=== PATIENT | male | born 1980 | race Caucasian/White ===

== ENCOUNTER 2024-04-29 09:46 | Outpatient (OUT) | payer OTHER, SELFPAY ==
[2024-04-29 10:52] LABS: Basophils Percent Auto 0.5 % (0.2-2.0); Eosinophils Absolute Auto 0.1 10^3/uL (0.0-0.7); Eosinophils Percent Auto 1.1 % (0.9-7.0); Hematocrit 44.1 % (42.0-54.0); Hemoglobin 15.1 g/dL (14.0-18.0); Immature Granulocytes Abs Auto 0.02 10^3/uL (0.00-0.03); Immature Granulocytes Pct Auto 0.3 % (0.0-0.5); Lymphocytes Absolute Auto 2.3 10^3/uL (1.2-3.8); Lymphocytes Percent Auto 36.6 % (20.5-60.0); Mean Corpuscular HGB Conc 34.2 g/dL (29.9-35.2); Mean Corpuscular Hemoglobin 31.7 pg (25.9-34.0); Mean Corpuscular Volume 92.6 fL (80.0-94.0); Mean Platelet Volume 10.4 fL (9.5-13.5); Monocytes Absolute Auto 0.6 10^3/uL (0.3-0.8); Monocytes Percent Auto 8.6 % (1.7-12.0); Neutrophils Absolute Auto 3.4 10^3/uL (1.4-6.5); Neutrophils Percent Auto 52.9 % (43.0-75.0); Platelet Count 237 10^3/uL (150-450); Red Blood Count 4.76 10^6/uL (4.70-6.10); Red Cell Distribution Width 12.6 % (11.0-15.0); White Blood Count 6.4 10^3/uL (4.0-11.0)
[2024-04-29 11:03] LABS: Estimated Average Glucose 111 mg/dL; Glycohemoglobin A1C 5.5 % (4.5-6.2)
[2024-04-29 11:43] LABS: Alanine Aminotransferase 80 U/L (16-63); Albumin Level 3.5 g/dL (3.4-5.0); Alkaline Phosphatase 77 U/L (46-116); Anion Gap 12.3; Aspartate Amino Transferase 27 U/L (15-37); BUN Creatinine Ratio 11.5; Bilirubin Total 0.5 mg/dL (0.2-1.0); Calcium 8.7 mg/dL (8.5-10.1); Carbon Dioxide 27.1 mmol/L (21.0-32.0); Chloride 105 mmol/L (98-107); Chol HDL Ratio 7.1; Cholesterol 226 mg/dL (<=200); Estimated GFR (African America >60 (>=60); Estimated GFR (Non-African Ame >60 (>=60); Free T3 2.65 pg/mL (2.18-3.98); Globulin 3.5 g/dL; Glucose 98 mg/dL (74-106); HDL Cholesterol 32 mg/dL (40-60); Potassium 4.4 mmol/L (3.5-5.1); Sodium 140 mmol/L (136-145); Thyroid Stimulating Hormone 1.174 uIU/mL (0.358-3.740); Triglycerides 192 mg/dL (<=150); VLDL CHOLESTEROL 38.4 mg/dL
== END 2024-04-29 09:47 | disposition home or self-care (01) ==
LOC: LAB 09:50
PROVIDERS: PCP Family Medicine; Visit Provider Family Medicine
DX: R73.09 Other abnormal glucose (principal); I10 Essential (primary) hypertension
CPT/HCPCS: 36415; 80053; 80061; 83036; 84436; 84443; 84481; 85025

== ENCOUNTER 2024-06-02 09:18 | Outpatient (OUT) | payer OTHER, SELFPAY ==
--- NOTE | 2024-06-02 | PCN_ITS ---
CARDIAC STRESS TEST Requesting Physician: Procedure Date: 06/02/2024 INDICATION: Hypertension. This was a treadmill exercise stress test performed at the [facility] on 06/02/2024. Informed consent was signed. The patient exercised on the treadmill according to the Adriano protocol. Total exercise time was 9 minutes. The patient reached stage 3 of the Adriano protocol and achieved 10.1 METS. The test was stopped due to achieving target heart rate. No chest pain was reported by the patient. There was shortness of breath that resolved within 2 minutes of completing the exercise. Resting heart rate was 82 BPM and resting blood pressure was 122/76. Peak heart rate was 155 BPM and peak blood pressure was 166/92. Peak heart rate represented 88% of maximal predicted heart rate. Resting ECG showed normal sinus rhythm with incomplete right bundle branch block and non-specific ST segment changes in the inferior leads. ECG during peak exercise showed [address] segment depression in leads 3 and AVF. Final ECG was comparable to baseline. There were no arrhythmias noted. SUMMARY OF THE FINDINGS: 1. Equivocal stress test due to presence of abnormal ST segment changes at baseline. Those changes slightly worsened during peak exercise. 2. 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 3. Depending on the clinical picture, repeat stress testing with imaging would be recommended given presence of ST segment abnormalities at baseline. EDWARD
--- NOTE | 2024-06-02 10:33 | PC.NURSE ---
Nursing Note Cardiac Stress Test Reviewed: Medication, allergies and patient history reviewed. Stress Test: [ x] Patient tolerated stress test well. [ ] Patient unable to tolerate walking on treadmill. Switched to Lexiscan stress test. [ x] No chest pain noted per patient [ ] Chest pain that resolved prior to leaving stress lab. [ ] No dyspnea noted. [x ] Dyspnea that resolved prior to leaving stress lab. [ x] Patient left stress lab asymptomatic and hemodynamically stable. [ ] Patient taken to the Emergency Room due to non-resolving symptoms following stress test. [x ] Patient achieved target heart rate. [ ] Patient unable to achieve target heart rate. [ ] Aminophylline administered as reversal agent to Lexiscan (Regadenoson). [ ] Nitro administered. Nursing Comments: Pt had regular stress test done. Pt tolerated well. NO issues. Pt had dyspnea that resolved within 2 minutes of rest. No chest pain noted.
== END 2024-06-02 09:19 | disposition home or self-care (01) ==
LOC: CARD 09:19
PROVIDERS: PCP Family Medicine; Visit Provider Nurse Practitioner Family
DX: E78.00 Pure hypercholesterolemia, unspecified (principal); I10 Essential (primary) hypertension
CPT/HCPCS: 93017

== ENCOUNTER 2025-05-25 10:27 | Outpatient (OUT) | payer OTHER, SELFPAY ==
--- OUTSIDE RECORDS SUMMARY | 2025-05-25 10:35 | XMS_ITS | Encounter Summary ---
Author Organization [facility] Address [address] [place] [address] Phone Care Team Providers Care Timber Packer Name Role Phone Lance Moreno MD Primary Care Provider [phone] Encounter Details Date Type Department Care Team (Late st Contact Info) Description 07/24/2022 Orders Only [facility] [address] [place] [address] Conversion, Onbase Social History Tobacco Use Types Packs/Day Years Used Date Smoking Tobacco: Never Assessed Sex and Gender Information Value Date Recorded Sex Assigned at Not on file Legal Sex Male 5:48 AM EST Gender Identity Not on file Sexual Orientation Not on file documented as of this encounter Plan of Treatment Scheduled Orders Name Type Priority Associated Diagnoses Orde r Schedule OUTSIDE LAB SCAN Lab Ordered: 07/24/2022 documented as of this encounter Visit Diagnoses Not on filedocumented in this encounter Care Teams Timber Packer Relationship Specialty Start Date End Date Lance Moreno MD [address] [id number] PCP - General 08/03/22 documented as of this encounter
[2025-05-25 11:06] LABS: Hematocrit 45.5 % (42.0-54.0); Hemoglobin 15.8 g/dL (14.0-18.0); Immature Granulocytes Abs Auto 0.04 10^3/uL (0.00-0.03); Immature Granulocytes Pct Auto 0.6 % (0.0-0.5); Lymphocytes Absolute Auto 1.8 10^3/uL (1.2-3.8); Mean Corpuscular HGB Conc 34.7 g/dL (29.9-35.2); Mean Corpuscular Hemoglobin 32.3 pg (25.9-34.0); Mean Corpuscular Volume 93.0 fL (80.0-94.0); Platelet Count 198 10^3/uL (150-450); Red Blood Count 4.89 10^6/uL (4.70-6.10); White Blood Count 6.5 10^3/uL (4.0-11.0)
[2025-05-25 12:02] LABS: Alanine Aminotransferase 48 U/L (16-63); Albumin Globulin Ratio 1.2; Albumin Level 3.8 g/dL (3.4-5.0); Alkaline Phosphatase 68 U/L (46-116); Anion Gap 8.4; Aspartate Amino Transferase 22 U/L (15-37); Blood Urea Nitrogen 13.0 mg/dL (7.0-18.0); Calcium 9.1 mg/dL (8.5-10.1); Carbon Dioxide 31.8 mmol/L (21.0-32.0); Chloride 104 mmol/L (98-107); Cholesterol 126 mg/dL (<=200); Estimated GFR (African America >60 (>=60 mL/min/1.73m^2); Estimated GFR (Non-African Ame >60 (>=60 mL/min/1.73m^2); Free T3 2.72 pg/mL (2.18-3.98); Globulin 3.1 g/dL; Glucose 92 mg/dL (74-106); HDL Cholesterol 39 mg/dL (40-60); Potassium 4.2 mmol/L (3.5-5.1); Sodium 140 mmol/L (136-145); Thyroid Stimulating Hormone 0.713 uIU/mL (0.358-3.740); Total Protein 6.9 g/dL (6.4-8.2); Triglycerides 94 mg/dL (<=150); VLDL CHOLESTEROL 18.8 mg/dL
== END 2025-05-25 10:28 | disposition home or self-care (01) ==
LOC: LAB 10:32
PROVIDERS: PCP Nurse Practitioner Family; Visit Provider Nurse Practitioner Family
DX: Z00.00 Encounter for general adult medical examination without abnormal findings (principal); Z12.5 Encounter for screening for malignant neoplasm of prostate
CPT/HCPCS: 36415; 80053; 80061; 83036; 84436; 84443; 84481; 85025; G0103

== ENCOUNTER 2025-08-18 16:33 | Outpatient (OUT) | payer OTHER, SELFPAY ==
--- NOTE | 2025-08-18 | XR_ITS ---
[facility] [place] [id number] Patient Name: MARCO BREWSTER MRN: [id number] date: 1980 Sex: M Assigned Patient Location: RAD Current Patient Location: [facility] Accession/Order Number: [id number] Exam Date: 08/18/2025 16:52 Report Date: 08/18/2025 20:37 At the request of: BRENTON BONDS Procedure: XR foot LT min 3V LEFT FOOT - 3 views CLINICAL HISTORY: Left Foot Pain, M79.672 COMPARISON: None FINDINGS: No fracture or dislocation. Hwen-wr-htbabcpt posterior and plantar calcaneal spurring. Minimal degenerative changes involving the first MTP joint. XR/XR foot LT min 3V IMPRESSION: NO ACUTE OSSEOUS FINDINGS. Impression dictated by: Julius Pierre M.D. 08/18/2025 8:37 PM Dictation Location: [place] [id number] Electronically authenticated by: [id number] Date: 08/18/2025 20:37
--- OUTSIDE RECORDS SUMMARY | 2025-08-18 16:44 | XMS_ITS | CCD ---
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 Normal [facility] PROF 14(COMP METB)on 022 Albumin [Mass/Vol] 3.7 g/dL Normal 3.4-5.0 [facility] Comment on above: Performed By: #### T SH, CMP, LIPID #### [facility] [address] [address] [address] Natasha Trinidad Albumin/Globulin [Mass ratio] 1.2 {ratio} Normal [facility] Comment on above: Performed By: #### T SH, CMP, LIPID #### [facility] [address] [address] [address] Natasha Trinidad ALP [Catalytic activity/Vol] 65 U/L Normal 46-116 [facility] Comment on above: Performed By: #### T SH, CMP, LIPID #### [facility] [address] [address] [address] Natasha Trinidad ALT [Catalytic activity/Vol] 106 U/L Critically high 16-63 [facility] Comment on above: Performed By: #### T SH, CMP, LIPID #### [facility] [address] [address] [address] Natasha Trinidad Anion gap [Moles/Vol] 10.5 mmol/L Normal [facility] Comment on above: Performed By: #### T SH, CMP, LIPID #### [facility] [address] [address] [address] Natasha Trinidad AST [Catalytic activity/Vol] 24 U/L Normal 15-37 [facility] Comment on above: Performed By: #### T SH, CMP, LIPID #### [facility] [address] [place] [address] Dr. Natasha Trinidad Bilirubin [Mass/Vol] 0.6 mg/dL Normal 0.2-1.0 [facility] Comment on above: Performed By: #### T SH, CMP, LIPID #### [facility] [address] [place] [address] Dr. Natasha Trinidad Calcium [Mass/Vol] 9.0 mg/dL Normal 8.5-10.1 [facility] Comment on above: Performed By: #### T SH, CMP, LIPID #### [facility] [address] [place] [address] Dr. Natasha Trinidad Chloride [Moles/Vol] 105 mmol/L Normal 98-107 [facility] Comment on above: Performed By: #### T SH, CMP, LIPID #### [facility] [address] [place] [address] Dr. Natasha Trinidad CO2 [Moles/Vol] 30.0 mmol/L Normal 21.0-32.0 [facility] Comment on above: Performed By: #### T SH, CMP, LIPID #### [facility] [address] [place] [address] Dr. Natasha Trinidad Creatinine [Mass/Vol] 1.15 mg/dL Normal 0.70-1.30 [facility] Comment on above: Performed By: #### T SH, CMP, LIPID #### [facility] [address] [place] [address] Dr. Natasha Trinidad EGFR-AF BAHAMIAN >60 Normal >=60 [facility] Comment on above: Performed By: #### T SH, CMP, LIPID #### [facility] [address] [address] [address] Natasha Trinidad EGFR-NON AF BAHAMIAN >60 Normal >=60 [facility] Comment on above: Performed By: #### T SH, CMP, LIPID #### [facility] [address] [address] [address] Natasha Trinidad Globulin (S) [Mass/Vol] 3.2 g/dL Normal [facility] Comment on above: Performed By: #### T SH, CMP, LIPID #### [facility] [address] [address] [address] Natasha Trinidad Glucose [Mass/Vol] 101 mg/dL Normal 74-106 [facility] Comment on above: Performed By: #### T SH, CMP, LIPID #### [facility] [address] [address] [address] Natasha Trinidad Potassium [Moles/Vol] 4.5 mmol/L Normal 3.5-5.1 [facility] Comment on above: Performed By: #### T SH, CMP, LIPID #### [facility] [address] [address] [address] Natasha Trinidad Protein [Mass/Vol] 6.9 g/dL Normal 6.4-8.2 [facility] Comment on above: Performed By: #### T SH, CMP, LIPID #### [facility] [address] [address] [address] Natasha Trinidad Sodium [Moles/Vol] 141 mmol/L Normal 136-145 [facility] Comment on above: Performed By: #### T SH, CMP, LIPID #### [facility] [address] [address] [address] Natasha Trinidad Urea nitrogen [Mass/Vol] 13.0 mg/dL Normal 7.0-18.0 [facility] Comment on above: Performed By: #### T SH, CMP, LIPID #### [facility] [address] [address] [address] Natasha Trinidad Urea nitrogen/Creatinine [Mass ratio] 11.3 mg/mg Normal [facility] Comment on above: Performed By: #### T SH, CMP, LIPID #### [facility] [address] [address] [address] Natasha Trinidad TSHon 07-24-2022 TSH 0.997 uIU/mL Normal 0.358-3.740 [facility] Comment on above: Performed By: #### T SH, CMP, LIPID #### [facility] [address] [address] [address] Natasha Trinidad XR LSPINE MIN 4 VIEWSon 06-13 XR LSPINE MIN 4 VIEWS EXAMINATION: XR LSPINE MIN 4 VIEWS HISTORY: Low back pain COMPARISON: No relevant comparison available. FINDINGS: BONES: Normal alignment with no spondylolisthesis. 20% anterior superior wedge compression fracture of L1, endplate sclerosis suggests a subacute or chronic fracture. Degenerative spondylosis and facet osteoarthropathy. Mild right DISC SPACES: Normal. No significant disc height narrowing, subluxation, or endplate abnormality. PARASPINOUS: Negative. No paraspinous abnormality is seen. OTHER: Negative. IMPRESSION: 20% anterior superior wedge compression fracture of L1, subacute/chronic Electronically authenticated by: EJ GARZA Date: 2022-07-04 15:23 Normal [facility] Vital Signs Date Time Vital Sign Value Performing Clinician Faci lity 01-12-2025 12:18-0500 Body height 181.61 cm [facility] 01-12-2025 12:18-0500 Body mass index (BMI) [Ratio] 34.1 kg/m2 [facility] 01-12-2025 12:18-0500 Body temperature 98.9 [degF] [facility] 01-12-2025 12:18-0500 Body weight 112.49 kg [facility] 01-12-2025 12:18-0500 Diastolic blood pressure 82 mm[Hg] [facility] 01-12-2025 12:18-0500 Heart rate 87 /min [facility] 01-12-2025 12:18-0500 Respiratory rate 16 /min [facility] 01-12-2025 12:18-0500 SaO2% (BldA) [Mass fraction] 97 % [facility] 01-12-2025 12:18-0500 Systolic blood pressure 127 mm[Hg] [facility] 08-22-2024 09:30-0400 Diastolic blood pressure 61 mm[Hg] [employer] Diandraromana Statonmer Work Phone: [facility] 08-22-2024 09:30-0400 Heart rate 63 /min [employer] Diandra Vamshi Work Phone: [facility] 08-22-2024 09:30-0400 Respiratory rate 16 /min [employer] Diandraromana Statonmer Work Phone: [facility] 08-22-2024 09:30-0400 SaO2% (BldA) [Mass fraction] 98 % [employer] Diandra Statonmer Work Phone: [facility] 08-22-2024 09:30-0400 Systolic blood pressure 105 mm[Hg] [employer]ACH[employer]C Diandraromana Statonmer Work Phone: [facility] 08-22-2024 08:14-0400 Body height 180.34 cm [employer] Diandra Bonds Work Phone: [facility] 08-22-2024 08:14-0400 Body weight 108.86 kg [employer] Diandra Statonmer Work Phone: [facility] 08-03-2022 11:59-0400 Body height 182.88 cm Lance Tong Leviy Work Phone: CD-Tpobvphdtxny-No rth [facility] [place] Work Phone: 08-03-2022 11:59-0400 Body mass index (BMI) [Ratio] 33.36 kg/m2 Lance M Hoy Work Phone: XN-Qvkxodgozcvy-Fj rth [facility] [place] Work Phone: 08-03-2022 11:59-0400 Body surface area Derived from formula 2.33 m2 Lance Tong Hoy Work Phone: SV-Chfztblydlfq-Sx rth [facility] [place] Work Phone: 08-03-2022 11:59-0400 Body weight 111.59 kg Lance M Hoy Work Phone: RB-Lvsmifqgqfma-Me rth [facility] [place] Work Phone: 08-03-2022 11:59-0400 Diastolic blood pressure 97 mm[Hg] Lance M Hoy Work Phone: LV-Vylzpcpehgil-Hn rth [facility] [place] Work Phone: 08-03-2022 11:59-0400 Heart rate 84 /min Lance M Hoy Work Phone: VZ-Lrfyvbfxgmhc-Ji rth [facility] [place] Work Phone: 08-03-2022 11:59-0400 Respiratory rate 20 /min Lance M Hoy Work Phone: JR-Qlmjdwhhocbx-Ie rth [facility] [place] Work Phone: 08-03-2022 11:59-0400 Systolic blood pressure 162 mm[Hg] Lance M Hoy Work Phone: HC-Jkknqnizhubk-Xh rth [facility] [place] Work Phone: Encounters Encounter Date Encounter Type Care Provider Facility Start: 05-25-2025 End: 05-25-2025 ambulatory Aysha Monahan [facility] Start: 04-27-2025 End: 04-27-2025 Emergency department patient visit Diandra Bonds Facility:[facility] Start: 03-17-2025 End: 03-17-2025 ambulatory [facility] Start: 02-02-2025 End: 02-03-2025 ambulatory [facility] Start: 01-12-2025 End: 01-12-2025 ambulatory [facility] Work Phone: Start: 01-12-2025 End: 01-12-2025 Patient encounter procedure Count Includes [facility] Work Phone: Start: 08-22-2024 End: 08-22-2024 Patient encounter procedure [employer]ET CO[employer] Diandra Bonds Work Phone: [facility] [place] Work Phone: Start: 08-22-2024 End: 08-22-2024 ambulatory [employer] Diandra Mustafae Vamshi Work Phone: [facility] Work Phone: Start: 08-03-[address] Ian Martin [facility] Facility:[id number] Start: 08-03-2022 Current tobacco non- user cad cap copd pv dm Lance Moreno Work Phone: FW-Ukudfjbfynwe-Sseot [facility] [place] Work Phone: Start: 07-29-2022 Encounter for genera l adult medical examination without abnormal findings DIANDRA BONDS [facility] Start: 07-24-2022 End: 07-25-2022 ambulatory DIANDRA BONDS Facility:[facility] Start: 07-24-2022 End: 07-25-2022 Encounter for general adult medical examination without abnormal findings DIANDRA BONDS Facility:[facility] Start: 07-14-2022 ambulatory DIANDRA BONDS Facility: [facility] Start: 07-03-2022 End: 07-04-2022 ambulatory DIANDRA BONDS Facility:[facility] Procedures Date Procedure Procedure Detail Performing Clinician Start: 08-22-2024 CT angiography of co ronary arteries [employer] Diandra Bonds Work Phone: Scrotum and testicle operation Lance Alycia Josh Work Phone: Tonsillectomy Lance Alycia Josh Work Phone: Payers Date Payer Category Payer Private Health Insurance [id number] 1980 Unknown [id number] [id number] 1980 Unknown [id number] [id number] 1979 Unknown [id number] [id number] 1979 Unknown [id number] [id number] 1959 Private Health Insurance [id number] 1960 Self-pay Unknown [employer] Unknown [id number] 2.16.8 [id number] Unknown [id number] [id number] [id number] Social History Date Type Detail Facility Former [facility] [place] Work Phone: Start: 1980 Sex Assigned At Male F [facility] Start: 01-12-2025 Tobacco smoking stat [facility] Ex-smoker (finding) [facility] Start: 01-12-2025 Sex Male (finding) [facility] Chief complaint Narrative - Reported Note Date & Type Note Facility Chief complaint Narrative - Reported Patient is being seen for an initial Neurosurgical evaluation. BV-Brshjnxmjgvg-Ysvpd [facility] [place] Work Phone: Evaluation note Note Date & Type Note Facility Evaluation note No assessment information availa ble [facility] Work Phone: History of Present illness Narrative Note Date & Type Note Facility History of Present illness Narrative Ref Provider : Dr. Lance Moreno /Bhanu was a pleasure to see Mr. BREWSTER at the [facility]. Mr. BREWSTER is a really nice 42 year male who presents to us with complaints of LOW BACK PAIN that started about 4 months back. Had ache pain in the lower back. Now is better with medicationLEG pain : NoSeverity 10 /10 in severity on a scale of 1 to 10.Aggravated factors : MotionsRelieving factors: medicationWeakness : DeniesBowel Bladder Symptoms: DeniesHe has tried medications, NSAIDS , has not hadPT and ESIs/selective nerve blocks.He is a NON-SMOKERHistory of Depression : NO.History of DVT/blood clots : NOThe patient is NOT on any STEROID or ASA, Plavix or anticoagulants ( COUMADIN )NARCOTICS for pain : NoPRIOR SPINE SURGERY : NOConstitutional: No fever or chillsRespiratory: No shortness of breath or wheezingMusculoskeletal: see HPI aboveNeurologic: See HPI aboveGENERAL: no apparent distressEYES: No icterus; extraocular movements intactNEURO: Neurologically patient is awake alert and oriented X 3No obvious cranial nerve deficit.Strength is 5/5 throughout all motor groups tested.No pronator driftDeep tendon reflexes are symmetric throughout.Gait : WNLSensory examination is intact to touch and painful stimuli.MRI of the lumbar spine that was done on 07/24/2022 was reviewed personally and shows no evidence of any spinal stenosis or nerve root compression. There is evidence of a chronic L1 compression fracture with no obvious kyphotic deformity or spinal stenosis at that level. AP and lateral x-rays of the lumbar spine done on 07/01/2022 were also reviewed and shows evidence of chronic compression fracture at L1 level with no significant loss of height or bony retropulsion into the spinal canal.PLAN:Mr. BREWSTER is a really nice 39-year-old gentleman with imaging evidence of a L1 chronic compression fracture with no evidence of any kyphotic deformity or instability or spinal subluxation or stenosis. I do not recommend any surgical intervention. I discussed the option of physical therapy or pain management as needed.It was a pleasure to participate in Mr. BREWSTER care.Ian Coyle MD, [facility], FAANSDirector - Minimally Invasive Spine SurgeryAvita Health System Galion HospitalAsstogus va medical center Professor of Neurological SurgerySelect Medical [facility] School of MedicineSacred Heart, [place]Some of this note was completed using [employer] voice recognition technology and sometimes the software misinterprets words. This may include unintended errors with respect to translation of words, typographical errors or grammar errors which may not have been identified prior to finalization of the chart note. Please take this into account when reading this note. [facility]cuctecswhaq[facility] Work Phone: Family History No Family History Records FoundUnknown Family Member Name Dates Details Family history of hypertensi on: Father(V17.49, Z82.49) Status:Active Family history of diabetes m ellitus: Mother(V18.0, Z83.3) Status:Active Summary Purpose Advance Directives No Advanced Directives Records Found Advance Directive Response Recorded Date/ Time Advance Directives No August 21, 2024 3:26pm Advance Directive Response Recorded Date/ Time Advance Directives No August 21, 2024 2:26pm Chief Complaint and Reason for Visit Chief Complaint i10 Chief Complaint Admit Date Cough, wheezing January 12, 2025 12:1 5pm Additional Source Comments (unrecognized sect ion and content) No Status Records FoundNo Status Records FoundNo Status Records FoundNo Status Records FoundNo Status Records Found INFORMATION SOURCE (unrecogn ized section and content) DATE CREATED AUTHOR [facility]/12/2022 [facility] DATE CREATED AUTHOR AUTHOR'S ORGANIZ ATION 08/13/2022 [facility] DATE CREATED AUTHOR AUTHOR'S ORGANIZ ATION 08/14/2022 [employer] DATE CREATED AUTHOR AUTHOR'S ORGANIZ ATION 05/28/2025 [facility] DATE CREATED AUTHOR AUTHOR'S ORGANIZ ATION 07/29/2025 [facility] Care Teams (unrecognized sec tion and content) Team Status: Active Member Role Status Dates Diandra Bonds NP-Jon Primary Care Provider Active Team Status: Inactive Member Role Status Dates Diandra Bonds NP-Jon Primary Care Enio batres Attending Provider Active Start: August 22, 2024 End: August 22, 2024 Team Status: Inactive Member Role Status Dates Diandra Bonds NP-Jon Primary Care Provider Active Start: January 12, 2025 End: January 12, 2025 Khushbu Lim APRN Attending Provider Active Start: January 12, 2025 End: January 12, 2025 Goals (unrecognized section and content) Goals may be documented in a n alternate sectionGoals may be documented in an alternate section FOR RECORDS PERTAINING TO PATIENTS WHO ARE OR HAVE BEEN ENROLLED IN A CHEMICAL DEPENDENCY/SUBSTANCEABUSE PROGRAM, SOME INFORMATION MAY BE OMITTED. This clinical summary was aggregated from multiple sources. Caution should be exercised in using it in the provision of clinical care. This summary normalizes information from multiple sources, and as a consequence, information in this document may materially change the coding, format and clinical context of patient data. In addition, data may be omitted in some cases. CLINICAL DECISIONS SHOULD BE BASED ON THE PRIMARY CLINICAL RECORDS. [facility]. provides no warranty or guarantee of the accuracy or completeness of information in this document.
== END 2025-08-18 16:34 | disposition home or self-care (01) ==
PROVIDERS: PCP Nurse Practitioner Family; Visit Provider Nurse Practitioner Family
DX: M79.672 Pain in left foot (principal)
CPT/HCPCS: 73630